=== PATIENT | female | born 1970 | race Caucasian/White ===

== ENCOUNTER 2017-07-08 10:30 | Emergency (ER) | payer MEDICARE ==
[~2017-07-08] VITALS: Ht 170.2 cm; Wt 77.1 kg
[2017-07-08] MEDS ORDERED: GABA300 PO (10:41)
[2017-07-08] MEDS ORDERED: Prinivil10 MG PO (10:43)
[2017-07-08] MEDS ORDERED: AMIT75 PO (10:43)
[2017-07-08] MEDS ORDERED: PRIM50 PO ×2 (10:43)
[2017-07-08] MEDS ORDERED: Crutch1 EACH EXT (13:40)
[2017-07-08] MEDS ORDERED: ULTRA-LIGHT RO1 EACH MC (13:45)
== END 2017-07-08 14:00 | disposition home or self-care (01) ==
LOC: ER 10:30
DX: S73.014A Posterior dislocation of right hip, initial encounter (principal); F17.200 Nicotine dependence, unspecified, uncomplicated; I10 Essential (primary) hypertension; Z79.899 Other long term (current) drug therapy; X58.XXXA Exposure to other specified factors, initial encounter
CPT/HCPCS: 27265; 73502; 96374; 96375; 99152; 99284; J2270; J2405; J7030

== ENCOUNTER 2021-09-14 10:22 | Emergency (ER) | payer MEDICARE ==
[~2021-09-14] VITALS: Ht 167.6 cm; Wt 90.7 kg
[~2021-09-14 10:22] MED LIST: AMIT75 PO; Crutch1 EACH EXT; GABA300 PO; PRIM50 PO; Prinivil10 MG PO; ULTRA-LIGHT RO1 EACH MC
[2021-09-14] MEDS ORDERED: AMIT25 PO (10:39)
[2021-09-14] MEDS ORDERED: VENL75ER PO (10:39)
[2021-09-14] MEDS ORDERED: ATOR20 PO (10:40)
[2021-09-14] MEDS ORDERED: PREG100 PO (10:40)
[2021-09-14] MEDS ORDERED: Primidone50 MG PO (10:40)
[2021-09-14] MEDS ORDERED: ALBU90OI INH (10:41)
[2021-09-14] MEDS ORDERED: Diovan160 MG PO (10:41)
[2021-09-14] MEDS ORDERED: IBUP800 PO (10:42)
[2021-09-14] MEDS ORDERED: AMOCLA875 PO (12:43)
== END 2021-09-14 13:12 | disposition home or self-care (01) ==
LOC: ER 10:22
DX: L03.211 Cellulitis of face (principal); K08.89 Other specified disorders of teeth and supporting structures; K03.81 Cracked tooth; I10 Essential (primary) hypertension; G71.00 Muscular dystrophy, unspecified; Z79.899 Other long term (current) drug therapy; F17.210 Nicotine dependence, cigarettes, uncomplicated; Z96.641 Presence of right artificial hip joint
CPT/HCPCS: 70487; 96374; 99283-25; A9270; J1100; J1885; Q9967